=== PATIENT | female | born 2000 | race Caucasian/White ===

== ENCOUNTER 2024-07-20 08:56 | Emergency (ER) | payer MEDICAID ==
[~2024-07-20] VITALS: Ht 157.5 cm; Wt 61.0 kg
[2024-07-20] MEDS: LIDOCAINE HCL/EPINEPHRINE 1%-EPI 1:100,000 20ML VIAL INFIL ONE (10:01)
[2024-07-20] MEDS: TETANUS, DIPHTHERIA, PERTUSSIS VAC/PF 0.5ML (>10YR OLD) IM ONE (10:02)
[2024-07-20] MEDS: LIDOCAINE HCL 1% 20ML VIAL INFIL ONE (10:45)
[2024-07-20] MEDS: AMOXICILLIN/POTASSIUM CLAVULANATE 875/125MG TAB PO ONE (10:45)
[2024-07-20] MEDS ORDERED: AMOX1TAB16 MT (11:32)
[2024-07-20] MEDS ORDERED: BO1 TP (11:33)
[2024-07-20 12:05] VITALS: BP 111/58; PULSE 69; RESP 17; TEMP 36.94740; O2SAT 99
== END 2024-07-20 14:10 | disposition home or self-care (01) ==
LOC: ER 08:56
DX: S61.211A Laceration without foreign body of left index finger without damage to nail, initial encounter (principal); S01.81XA Laceration without foreign body of other part of head, initial encounter; W54.0XXA Bitten by dog, initial encounter; Y93.89 Activity, other specified; Y92.89 Other specified places as the place of occurrence of the external cause; Y99.8 Other external cause status
CPT/HCPCS: 90715; 12002; 12015; 90471; 99283; J3490 ×2; Z7610 ×3

== ENCOUNTER 2025-03-31 19:15 | Emergency (ER) | payer OTHER, MEDICAID ==
[~2025-03-31] VITALS: Ht 160 cm; Wt 77.1 kg
[~2025-03-31 19:15] MED LIST: AMOX1TAB16 MT; BO1 TP
[2025-03-31 19:23] VITALS: O2SAT 100
[2025-03-31 19:45] LABS: HEMOGLOBIN. 12.8 g/dL (12.0-16.0); MEAN CORPUSCULAR HEMOGLOBIN 31.3 pg (28.0-32.0); MEAN CORPUSCULAR HGB CONC 33.8 g/dL (31.0-37.0); MEAN CORPUSCULAR VOLUME 92.8 fL (81.0-99.0); MEAN PLATELET VOLUME 8.2 fl (7.4-10.4); PLATELET 235 x1000/uL (130-400); RED CELL DISTRIBUTION WIDTH 13.7 % (11.6-14.6); WHITE BLOOD COUNT 13.8 x1000/uL (4.5-11.0)
[2025-03-31 19:53] LABS: DIFFERENTIAL COMMENT 1
[2025-03-31 19:55] LABS: CARBON DIOXIDE 21 mEq/L (21-32); CHLORIDE 108 mEq/L (98-107); SODIUM 138 mEq/L (136-145)
[2025-03-31 20:00] LABS: CREATININE 0.6 mg/dL (0.6-1.0); GLUCOSE 101 mg/dL (70-105)
[2025-03-31 20:01] LABS: UREA NITROGEN BLOOD 6 mg/dL (9-23)
[2025-03-31 20:02] LABS: ALANINE AMINOTRANSFERASE 56 IU/L (10-49); ALBUMIN 3.5 g/dL (3.2-4.8); ASPARTATE AMINOTRANSFERASE 36 IU/L (<34)
[2025-03-31 20:03] LABS: BILIRUBIN TOTAL 0.5 mg/dL (0.1-1.0); PROTEIN TOTAL 5.7 g/dL (6.0-8.3)
[2025-03-31 20:05] LABS: PLATELET ESTIMATE NORMAL
[2025-03-31 21:22] VITALS: BP 102/65; PULSE 76; RESP 22; TEMP 36.7; O2SAT 98
== END 2025-03-31 21:35 | disposition short-term general hospital (02) ==
LOC: ER 19:15
DX: O26.893 Other specified pregnancy related conditions, third trimester (principal); R10.9 Unspecified abdominal pain; Z3A.36 36 weeks gestation of pregnancy
CPT/HCPCS: 36415; 76805; 80053; 85025; 86850; 86900; 99291